=== PATIENT | female | born 1980 | race American Indian/Alaskan Native ===

== ENCOUNTER 2016-08-30 10:10 | Emergency (ER) | payer OTHER ==
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
[2016-08-30 10:29] VITALS: BP 149/99; PULSE 78; TEMP 98.6; BMI 28.2
== END 2016-08-30 11:04 | disposition home or self-care (01) ==
LOC: FER 10:10
DX: S83.412A Sprain of medial collateral ligament of left knee, initial encounter (principal); X58.XXXA Exposure to other specified factors, initial encounter; Y93.9 Activity, unspecified; Y92.9 Unspecified place or not applicable; Y99.0 Civilian activity done for income or pay; Z87.828 Personal history of other (healed) physical injury and trauma
CPT/HCPCS: 73560-TC-LT; 99283-25